=== PATIENT | female | born 1990 | race Caucasian/White ===

== ENCOUNTER 2023-06-08 00:31 | Emergency (ER) | payer OTHER, SELFPAY ==
[2023-06-08] VITALS (14 sets, daily range): BP systolic 82–116; BP diastolic 51–72; PULSE 102–130; RESP 17–21; TEMP 36.6–36.7; O2SAT 93–100
--- NOTE | ~2023-06-08 | XR_ITS ---
EXAMINATION: XR chest 1V portable DATE: 06/08/2023 04:44 INDICATION: Cough. Shortness of breath. . TECHNIQUE: A single frontal view of the chest was obtained. COMPARISON: None. FINDINGS: There are airspace opacities at the lung bases. No pleural effusion or pneumothorax. The he art size is normal. IMPRESSION: 1. Airspace opacities at the lung bases, consistent with atelectasis versus pneumonia. Reviewed, dictated and finalized at location A. [employer]ESS [employer]NAGER IMPRESSION: 1. Airspace opacities at the lung bases, consistent with atelectasis versus pne umonia.
--- NOTE | 2023-06-08 00:33 | ECG_ITS ---
Measurements Intervals [place] Rate: 129 P: 34 [place]: 128 QRS: 25 QRSD: 91 T: 30 QT: 334 QTc: 490 Interpretive Statements SINUS TACHYCARDIA NONSPECIFIC ST & T-WAVE ABNORMALITY ABNORMAL RHYTHM ECG NO PREVIOUS ECG AVAILABLE FOR COMPARISON Electronically Signed On 06-08-2023 14:49:47 PLAY READER by Olimpia Hopkins M.D.
[2023-06-08] MEDS: ALBUTEROL SULFATE NEB 2.5 MG/3 ML INH INHALATION (02:49)
[2023-06-08] MEDS: IPRATROPIUM BR 0.02% INH SOLN 0.5 MG/2.5 ML VIAL INHALATION (02:49)
[2023-06-08 02:53] LABS: Hemoglobin 10.8 g/dL (12.0-15.0); Mean Corpuscular HGB Conc 33.8 g/dl (32-36); Mean Corpuscular Hemoglobin 30.3 pg (26-34); Mean Corpuscular Volume 89.9 fl (80-100); Mean Platelet Volume 9.8 fl (7.4-10.4); Platelet Count Result 174 k/mm3 (150-375); Red Blood Count 3.56 M/mm3 (4.2-5.4); Red Cell Distribution Width 13.3 % (11.5-14.5); White Blood Count 10.8 K/mm3 (4.5-10.0)
[2023-06-08] MEDS: SODIUM CHLORIDE 0.9% IV 1,000 ML 999 ML IV CONT (02:55)
[2023-06-08] MEDS: ACETAMINOPHEN 500 MG TABLET 1000 MG PO (02:55)
[2023-06-08 03:13] LABS: Partial Thromboplastin Time 24.8 SECONDS (22.3-36.8); Prothrombin Time 13.5 Seconds (11.1-14.7)
[2023-06-08 03:20] LABS: Platelet Estimate Adequate (Adequate)
[2023-06-08 03:29] LABS: Alanine Aminotransferase 15 U/L (6-35); Albumin Level 3.3 g/dL (3.5-5.1); Alkaline Phosphatase 70 U/L (38-126); Anion Gap 8 mmol/L (8-16); Aspartate Amino Transferase 24 U/L (14-36); Bilirubin,Total 0.5 mg/dL (0.2-1.3); Blood Urea Nitrogen 10 mg/dL (7-17); Calcium 8.3 mg/dL (8.4-10.2); Carbon Dioxide 20 mmol/L (22-30); Chloride 103 mmol/L (98-107); Estimated Glomerular Filt Rate > 60; Glucose 108 mg/dL (65-110); Sodium 131 mmol/L (137-145)
[2023-06-08 03:30] LABS: Lactic Acid Reflex 1.1 mmol/L (0.7-2.0); Total Cells Counted 100
[2023-06-08 03:34] LABS: Bacteria Urine 1+ /hpf; Non Pathogenic Casts 0-2; RBC Urine 0-2 /hpf (0-2); Squamous Epithelial Cell Urine Moderate /hpf (Few); WBC Urine 21-50 /hpf
[2023-06-08 03:36] LABS: Band Neutrophils Percent 13 % (0-6); Basophils Percent Manual 0 % (0-1); Eosinophils Percent Manual 0 % (0-4); Lymphocytes Absolute Manual 0.75 K/mm3 (1.1-4.5); Lymphocytes Percent Manual 7 % (18-44); Metamyelocytes Percent 0 %; Monocytes Percent Manual 1 % (3-9); Myelocytes Percent 0 %; Neutrophils Absolute Manual 9.93 K/mm3 (1.7-7.2); Neutrophils Percent Manual 79 % (46-73); Promyelocytes Percent 0 %
[2023-06-08 03:37] LABS: Anisocytosis 1+ (NORMAL); Giant Platelets Present; Hypochromasia 1+ (NORMAL); Large Platelets Present; NT Pro B Type Natriuretic Pept 159 pg/mL (19.9-100); Platelet Clumps Present; Schistocytes None Seen (NORMAL); Troponin I < 0.012 ng/mL (0.000-0.034)
[2023-06-08 03:43] LABS: Procalcitonin 4.1 ng/mL
[2023-06-08 03:47] LABS: Color Urine Yellow (Yellow)
[2023-06-08 03:48] LABS: Appearance Urine Clear (Clear); Bilirubin Urine 3+ (Negative); Blood Urine Negative (Negative); Glucose Urine UA Negative (Negative); Ketones Urine 3+ mg/dL (Negative); Leukocyte Esterase Ur 3+ LEU/UL (Negative); Nitrate Urine Negative (Negative); Protein Urine Trace mg/dL (Negative); Urobilinogen Urine 0.2 mg/dL (<2.0)
[2023-06-08 03:49] LABS: Influenza A QL RT-PCR Negative (Negative); Influenza B QL RT-PCR Negative (Negative); RSV RNA, RT-PCR Positive (Negative); SARS-CoV-2 RNA PCR Negative (Negative)
[2023-06-08 03:50] LABS: Add Urine Microscopic? YES
--- NOTE | 2023-06-08 05:27 | ED.GENADULT ---
HPI - General Adult General Chief complaint: Chest Pain Stated complaint: Chest pain, sob, 6months preg Time Seen by Provider: 06/08/23 02:20 History of Present Illness HPI narrative: Patient 33-year-old female who presents emerged from with chief complaint of shortness of breath and chest pain. The patient reports that she has had a cough for the last several days reports that she is 26 weeks reports that she is having no abdominal pain. The patient reports the cough has been productive reports she has had chills with this as well. Related Data Allergies Allergy/AdvReac Type Severity Reaction Status Date / Time No Known Allergies Allergy Verified 06/08/23 00:32 Review of Systems Review of Systems: A 10 system review of systems was completed on the patient and is negative except for what is stated in the HPI. Nursing and ancillary documentation was reviewed. Exam Narrative: GENERAL: Well-appearing, well-nourished, and in no acute distress. HEAD: Normocephalic, atraumatic. EYES: PERRLA and EOMI. ENT: Nares clear, no rhinorrhea or epistaxis. Mucous membranes moist. NECK: Supple. CHEST: Clear to auscultation. No respiratory distress. HEART: Tachycardic rate and rhythm. No murmur heard. Normal peripheral pulses. ABDOMEN: Soft, nontender, nondistended, normal active bowel sounds. EXTREMITIES: Normal range of motion. No edema. SKIN: Warm, dry, no rash. NEURO: No focal deficits. Alert and oriented x3. PSYCH: Normal mood and affect. Course Vital Signs Vital signs: Vital Signs Temperature 36.6 C 06/08/23 00:35 Pulse Rate 130 H 06/08/23 00:35 Respiratory Rate 20 06/08/23 00:35 Blood Pressure 100/57 L 06/08/23 00:35 Pulse Oximetry 93 06/08/23 00:35 Oxygen Delivery Room Air 06/08/23 00:35 Temperature 36.6 C 06/08/23 00:35 Pulse Rate 104 H 06/08/23 05:00 Respiratory Rate 20 06/08/23 05:00 Blood Pressure 96/72 L 06/08/23 05:00 Pulse Oximetry 96 06/08/23 05:00 Oxygen Delivery Room Air 06/08/23 03:49 Medical Decision Making [facility] Narrative Medical decision making narrative: Differential diagnosis includes pneumonia, CHF, RSV, flu, COVID, UTI, Laboratory studies were obtained on the patient showed RSV positive UTI present and chest x-ray showed possible infiltrate left lower lobe. Patient given a dose Rocephin given hydration in the emergency department patient be discharged home on cefdinir and Zithromax Vital Signs Vital Signs: Vital Signs Temperature 36.6 C 06/08/23 00:35 Pulse Rate 130 H 06/08/23 00:35 Respiratory Rate 20 06/08/23 00:35 Blood Pressure 100/57 L 06/08/23 00:35 Pulse Oximetry 93 06/08/23 00:35 Oxygen Delivery Room Air 06/08/23 00:35 Temperature 36.6 C 06/08/23 00:35 Pulse Rate 104 H 06/08/23 05:00 Respiratory Rate 20 06/08/23 05:00 Blood Pressure 96/72 L 06/08/23 05:00 Pulse Oximetry 96 06/08/23 05:00 Oxygen Delivery Room Air 06/08/23 03:49 Lab Data 06/08/23 02:46 06/08/23 02:46 Labs: Lab Results 06/08/23 06/08/23 06/08/23 Range/Units 02:46 02:57 03:22 WBC 10.8 H (4.5-10.0) K/mm3 RBC 3.56 L (4.2-5.4) M/mm3 Hgb 10.8 L (12.0-15.0) g/dL Hct 32.0 L (37.0-47.0) % MCV 89.9 (80-100) fl MCH 30.3 (26-34) pg MCHC 33.8 (32-36) g/dl RDW 13.3 (11.5-14.5) % Plt Count 174 (150-375) k/mm3 MPV 9.8 (7.4-10.4) fl Immature Gran % (Auto) Seam Closer Neut % (Auto) Seam Closer Lymph % (Auto) Seam Closer [place] % (Auto) Seam Closer Eos % (Auto) Seam Closer Baso % (Auto) Seam Closer Lymph # (Auto) Seam Closer [place] # (Auto) Seam Closer Eos # (Auto) Seam Closer Baso # (Auto) Seam Closer Abs Immat Gran (auto) Seam Closer Absolute Neuts (auto) Seam Closer Absolute Nucleated RBC Seam Closer Total Counted 100 Neutrophils % (Manual) 79 H (46-73) % Band Neutrophils % 13 H (0-6) % Lymphocytes % (Manual) 7 L (18-44) % Monocytes % (Manual) 1 L (3-9) %
== END 2023-06-08 06:28 | disposition home or self-care (01) ==
PROVIDERS: Emergency Provider Emergency Medicine; PCP Family Medicine
DX: N39.0 Urinary tract infection, site not specified (principal); J12.1 Respiratory syncytial virus pneumonia; Z20.822 Contact with and (suspected) exposure to COVID-19
CPT/HCPCS: 36415; 71045; 80053; 81001; 83605; 83880; 84145; 84484; 85025; 85610; 85730; 87086; 87088; 87637; 93005; 94640; 96361; 96365; 99284; A9270; J0696; J7030